=== PATIENT | female | born 1970 | race Caucasian/White ===

== ENCOUNTER 2020-08-08 15:46 | Inpatient (IN) ==
[2020-08-08] MEDS ORDERED: Naloxone 0.4 MG/ML INJ IVP PRN (17:34)
[2020-08-08] MEDS ORDERED: 0.9 % Sodium Chloride 1,000 ML IVC ONE (17:46)
[2020-08-08] MEDS ORDERED: 0.9 % Sodium Chloride 1,000 ML ONE (17:48)
[2020-08-08] MEDS ORDERED: Chloraseptic Spray 177 ML BOTTLE MM PRN (18:05)
[2020-08-08] MEDS ORDERED: Melatonin 3 MG TABLET PO PRN (18:11)
[2020-08-08] MEDS ORDERED: Ondansetron 4 MG/2 ML VIAL IVP PRN (18:54)
[2020-08-08 19:09] LABS: Adenovirus Not Detected (Not Detect); Bordetella Pertussis Not Detected (Not Detect); Chlamydophila pneumoniae Not Detected (Not Detect); Coronavirus 229E Not Detected (Not Detect); Coronavirus HKU1 Not Detected (Not Detect); Coronavirus NL63 Not Detected (Not Detect); Coronavirus OC43 Not Detected (Not Detect); Human Metapneumovirus Not Detected (Not Detect); Human Rhinovirus/Enterovirus DETECTED (Not Detect); Influenza A Subtype 2009 H1 Not Detected (Not Detect); Influenza B Not Detected (Not Detect); Mycoplasma pneumoniae Not Detected (Not Detect); Parainfluenza Virus 1 Not Detected (Not Detect); Parainfluenza Virus 2 Not Detected (Not Detect); Parainfluenza Virus 3 Not Detected (Not Detect); Parainfluenza Virus 4 Not Detected (Not Detect); Respiratory Syncytial Virus Not Detected (Not Detect); SARS-CoV-2 Not Detected (Not Detect)
[2020-08-08] MEDS: Cefepime HCl 2,000 MG in 0.9 % Sodium Chloride Mini Bag 100 ML IVPB SCH (19:56)
[2020-08-08] MEDS: Pantoprazole 40 MG VIAL IVP SCH (19:56)
[2020-08-08] MEDS: Ringers Solution, Lactated 1,000 ML IVC SCH (19:58)
[2020-08-08] MEDS: Vancomycin 1,250 MG/262.5 ML IV.SOLN IVPB SCH ×3 (19:58→20:13)
[2020-08-08] MEDS ORDERED: Lidocaine Viscous Oral Soln 15 ML SOLUTION MM PRN (20:54)
[2020-08-08] MEDS: Hydrocortisone Rectal 2.5% CRM 28 GM TUBE RC PRN (22:38)
[2020-08-08 23:29] LABS: Bilirubin,Urine Negative (Negative); Blood,Urine Negative (Negative); Clarity,Urine Clear (Clear); Color,Urine Light-Yellow (Yellow); Glucose,Urine (UA) Normal (Normal); Ketones,Urine Negative (Negative); Leukocyte Esterase,Urine Negative (Negative); Nitrite,Urine Negative (Negative); PH,Urine 5.5 pH Units (5.0-8.0); Protein,Urine Trace mg/dL (Neg-Trace); Specific Gravity,Urine 1.013 (1.010-1.025); Urobilinogen,Urine Normal (Normal)
[2020-08-09] MEDS: Cefepime HCl 2,000 MG in 0.9 % Sodium Chloride Mini Bag 100 ML IVPB SCH ×4 (00:20→23:03)
[2020-08-09 01:07] LABS: Hematocrit 34.9 % (35.3-44.9); Hemoglobin 10.9 g/dL (11.5-15.4); Immature Platelets 4.1 % (1.1-6.1); Lymphocytes # 0.2 K/mcL (0.6-4.6); Lymphocytes % 61.3 %; Mean Corpuscular HGB Conc 31.2 g/dL (31.6-35.5); Mean Corpuscular Hemoglobin 27.3 pg (28.0-33.3); Mean Corpuscular Volume 87.5 fL (83.0-100.0); Mean Platelet Volume 10.3 fL (9.4-12.4); Monocytes # 0.1 K/mcL (0.0-1.3); Monocytes % 16.1 %; Neutrophils # 0.1 K/mcL (1.6-8.9); Red Blood Count 3.99 M/mcL (3.82-4.97); Red Cell Distribution Width 13.4 % (11.5-14.5); Segmented Neutrophils % 22.6 %
[2020-08-09 01:11] LABS: Platelet Count 31 K/mcL (140-400)
[2020-08-09 01:15] LABS: White Blood Count 0.3 K/mcL (4.3-11.1)
[2020-08-09 01:21] LABS: BUN/Creatinine Ratio 23 (6-26); Blood Urea Nitrogen 27 mg/dL (6-20); Carbon Dioxide 18 mEq/L (23-29); Chloride 101 mEq/L (98-107); Glucose 108 mg/dL (70-105); Osmolality,Calculated 276 (280-300); Potassium 4.7 mEq/L (3.5-5.1); Sodium 130 mEq/L (136-145); eGFR For African Americans > 60 (> 60); eGFR For Non-African Americans 50 (> 60)
[2020-08-09 01:37] LABS: Platelet Estimate Decreased (Normal); Reactive Lymphocytes Present (Not Present)
[2020-08-09] MEDS ORDERED: Ringers Solution, Lactated 1,000 ML IVC ONE (03:01)
[2020-08-09] MEDS ORDERED: Furosemide 20 MG/2 ML VIAL IVP ONE (07:49)
[2020-08-09] MEDS: BuPROPion XL (24 HR) 150 MG TABLET PO SCH (08:17)
[2020-08-09] MEDS: Pantoprazole 40 MG VIAL IVP SCH (08:17)
[2020-08-09 08:35] LABS: ABG Base Excess -5 mEq/L (-2 to 3); ABG HCO3 18 mEq/L (21-27); ABG Oxygen Saturation 96 % (95-98); ABG PCO2 28 mmHg (35-45); ABG PH 7.42 pH Units (7.32-7.45); ABG PO2 78 mmHg (85-104); ABG TCO2 19 mEq/L (20-26)
[2020-08-09] MEDS: Acetaminophen 325 MG TABLET PO PRN (11:27)
[2020-08-09] MEDS ORDERED: Hydrocortisone Sodium Succ 100 MG/2 ML VIAL IVP SCH (13:57)
[2020-08-09] MEDS ORDERED: Azithromycin 500 MG in 0.9 % Sodium Chloride 250 ML IVPB SCH (15:00)
[2020-08-09] MEDS: Hydrocortisone Sodium Succ 100 MG/2 ML VIAL IVP SCH ×2 (18:31→23:01)
[2020-08-09] MEDS: Ringers Solution, Lactated 1,000 ML IVC SCH ×3 (19:25→19:27)
[2020-08-09] MEDS: Vancomycin 1,250 MG/262.5 ML IV.SOLN IVPB SCH (20:57)
[2020-08-09 21:50] LABS: C.difficile Toxin A/B Gene PCR Not detected (Not detect); Campylobacter by PCR Not detected (Not detect); Plesiomonas shigelloides PCR Not detected (Not detect)
[2020-08-09 21:51] LABS: Adenovirus F 40/41 PCR Not detected (Not detect); Astrovirus PCR Not detected (Not detect); Cryptosporidium by PCR Not detected (Not detect); Cyclospora cayetanensis PCR Not detected (Not detect); E. coli O157 by PCR Not detected (Not detect); Entamoeba histolytica PCR Not detected (Not detect); Enteroaggregative E.coli(EAEC) Not detected (Not detect); Enteropathogenic E.coli(EPEC) Not detected (Not detect); Enterotoxigenic E.coli (ETEC) Not detected (Not detect); Giardia lamblia PCR Not detected (Not detect); Norovirus GI/GII PCR Not detected (Not detect); Rotavirus A PCR Not detected (Not detect); Salmonella PCR Not detected (Not detect); Sapovirus PCR Not detected (Not detect); Shig/EnteroinvasiveE coli EIEC Not detected (Not detect); Shigalike tox-prod E coli STEC Not detected (Not detect); Vibrio PCR Not detected (Not detect); Vibrio cholerae PCR Not detected (Not detect); Yersinia enterocolitica PCR Not detected (Not detect)
[2020-08-10] MEDS: Ringers Solution, Lactated 1,000 ML IVC SCH ×2 (02:38→09:28)
[2020-08-10 03:28] LABS: Basophils % 1.2 %; Immature Granulocytes % 1.2 % (0-4); Red Blood Count 3.34 M/mcL (3.82-4.97)
[2020-08-10 03:30] LABS: Hematocrit 28.3 % (35.3-44.9); Hemoglobin 9.3 g/dL (11.5-15.4); Immature Platelets 4.9 % (1.1-6.1); Lymphocytes # 0.1 K/mcL (0.6-4.6); Lymphocytes % 16.7 %; Mean Corpuscular HGB Conc 32.9 g/dL (31.6-35.5); Mean Corpuscular Hemoglobin 27.8 pg (28.0-33.3); Mean Corpuscular Volume 84.7 fL (83.0-100.0); Mean Platelet Volume 9.8 fL (9.4-12.4); Monocytes # 0.1 K/mcL (0.0-1.3); Monocytes % 13.1 %; Red Cell Distribution Width 13.2 % (11.5-14.5); Segmented Neutrophils % 67.8 %
[2020-08-10 03:44] LABS: INR 2.2; Prothrombin Time 24.9 Seconds (9.4-12.1)
[2020-08-10 03:46] LABS: BUN/Creatinine Ratio 32 (6-26); Blood Urea Nitrogen 21 mg/dL (6-20); Calcium 7.4 mg/dL (8.6-10.3); Carbon Dioxide 20 mEq/L (23-29); Chloride 101 mEq/L (98-107); Glucose 119 mg/dL (70-105); Osmolality,Calculated 276 (280-300); Potassium 3.4 mEq/L (3.5-5.1); Sodium 131 mEq/L (136-145); eGFR For African Americans > 60 (> 60); eGFR For Non-African Americans > 60 (> 60)
[2020-08-10 04:10] LABS: Neutrophils # 0.5 K/mcL (1.6-8.9)
[2020-08-10 04:12] LABS: Platelet Count 30 K/mcL (140-400); White Blood Count 0.8 K/mcL (4.3-11.1)
[2020-08-10 04:44] LABS: Platelet Estimate Marked Decrease (Normal)
[2020-08-10] MEDS: Hydrocortisone Sodium Succ 100 MG/2 ML VIAL IVP SCH ×3 (05:10→18:34)
[2020-08-10] MEDS: Pantoprazole 40 MG VIAL IVP SCH (08:06)
[2020-08-10] MEDS: BuPROPion XL (24 HR) 150 MG TABLET PO SCH (08:06)
[2020-08-10] MEDS: Cefepime HCl 2,000 MG in 0.9 % Sodium Chloride Mini Bag 100 ML IVPB SCH ×2 (08:07→15:18)
[2020-08-10] MEDS: Nystatin SUSP 5 ML UD.LIQ PO SCH ×4 (08:30→20:42)
[2020-08-10] MEDS: Hydrocortisone Rectal 2.5% CRM 28 GM TUBE RC PRN (09:29)
[2020-08-10] MEDS: Acetaminophen 325 MG TABLET PO PRN (10:42)
[2020-08-10] MEDS ORDERED: Hydrocortisone Rectal 2.5% CRM 28 GM TUBE RC PRN (13:57)
[2020-08-10] MEDS ORDERED: Naloxone 0.4 MG/ML INJ IVP PRN (13:57)
[2020-08-10] MEDS ORDERED: Melatonin 3 MG TABLET PO PRN (13:57)
[2020-08-10] MEDS ORDERED: Ringers Solution, Lactated 1,000 ML IVC SCH (13:57)
[2020-08-10] MEDS ORDERED: Azithromycin 500 MG in 0.9 % Sodium Chloride 250 ML IVPB SCH (15:00)
[2020-08-10] MEDS ORDERED: Vancomycin 1,250 MG/262.5 ML IV.SOLN IVPB SCH (20:00)
[2020-08-10] MEDS: Vancomycin 1,500 MG/265 ML IV.SOLN IVPB SCH (20:42)
[2020-08-11] MEDS: Cefepime HCl 2,000 MG in 0.9 % Sodium Chloride Mini Bag 100 ML IVPB SCH ×3 (00:04→16:52)
[2020-08-11] MEDS: Hydrocortisone Sodium Succ 100 MG/2 ML VIAL IVP SCH ×4 (00:04→21:11)
[2020-08-11] MEDS: Acetaminophen 325 MG TABLET PO PRN (05:22)
[2020-08-11 06:44] LABS: Basophils % 0.9 %; Hematocrit 27.8 % (35.3-44.9); Immature Granulocytes % 1.8 % (0-4); Immature Platelets 12.6 % (1.1-6.1); Lymphocytes # 0.3 K/mcL (0.6-4.6); Mean Corpuscular HGB Conc 32.4 g/dL (31.6-35.5); Mean Corpuscular Hemoglobin 27.6 pg (28.0-33.3); Mean Corpuscular Volume 85.3 fL (83.0-100.0); Mean Platelet Volume 11.5 fL (9.4-12.4); Monocytes # 0.4 K/mcL (0.0-1.3); Neutrophils # 3.5 K/mcL (1.6-8.9); Nucleated Red Blood Cells 0.5 /100 WBC (0); Red Blood Count 3.26 M/mcL (3.82-4.97); Red Cell Distribution Width 13.4 % (11.5-14.5); Segmented Neutrophils % 80.3 %; White Blood Count 4.4 K/mcL (4.3-11.1)
[2020-08-11 06:47] LABS: Platelet Count 39 K/mcL (140-400)
[2020-08-11 06:57] LABS: BUN/Creatinine Ratio 30 (6-26); Blood Urea Nitrogen 18 mg/dL (6-20); Calcium 7.9 mg/dL (8.6-10.3); Carbon Dioxide 24 mEq/L (23-29); Chloride 103 mEq/L (98-107); Glucose 131 mg/dL (70-105); Osmolality,Calculated 280 (280-300); Potassium 3.8 mEq/L (3.5-5.1); Sodium 133 mEq/L (136-145); eGFR For African Americans > 60 (> 60); eGFR For Non-African Americans > 60 (> 60)
[2020-08-11 07:17] LABS: Platelet Estimate Marked Decrease (Normal)
[2020-08-11] MEDS: Pantoprazole 40 MG VIAL IVP SCH (08:05)
[2020-08-11] MEDS: Nystatin SUSP 5 ML UD.LIQ PO SCH ×4 (08:05→21:11)
[2020-08-11] MEDS: BuPROPion XL (24 HR) 150 MG TABLET PO SCH (08:06)
[2020-08-11] MEDS: Vancomycin 1,500 MG/265 ML IV.SOLN IVPB SCH ×2 (09:39→21:12)
[2020-08-12] MEDS: Acetaminophen 325 MG TABLET PO PRN (00:24)
[2020-08-12] MEDS: Cefepime HCl 2,000 MG in 0.9 % Sodium Chloride Mini Bag 100 ML IVPB SCH ×4 (00:25→23:12)
[2020-08-12] MEDS: Hydrocortisone Sodium Succ 100 MG/2 ML VIAL IVP SCH ×3 (05:30→23:13)
[2020-08-12 05:53] LABS: Hemoglobin 8.4 g/dL (11.5-15.4)
[2020-08-12 05:55] LABS: Hematocrit 25.3 % (35.3-44.9); Immature Platelets 9.2 % (1.1-6.1); Mean Corpuscular HGB Conc 33.2 g/dL (31.6-35.5); Mean Corpuscular Hemoglobin 28.1 pg (28.0-33.3); Mean Corpuscular Volume 84.6 fL (83.0-100.0); Mean Platelet Volume 11.2 fL (9.4-12.4); Nucleated Red Blood Cells 0.4 /100 WBC (0); Red Blood Count 2.99 M/mcL (3.82-4.97); Red Cell Distribution Width 13.8 % (11.5-14.5)
[2020-08-12] MEDS: Lidocaine Viscous Oral Soln 15 ML SOLUTION MM PRN (06:02)
[2020-08-12 06:14] LABS: BUN/Creatinine Ratio 29 (6-26); Blood Urea Nitrogen 17 mg/dL (6-20); Calcium 7.8 mg/dL (8.6-10.3); Carbon Dioxide 25 mEq/L (23-29); Chloride 104 mEq/L (98-107); Glucose 105 mg/dL (70-105); Osmolality,Calculated 284 (280-300); Platelet Count 67 K/mcL (140-400); Potassium 3.7 mEq/L (3.5-5.1); Sodium 136 mEq/L (136-145); eGFR For African Americans > 60 (> 60); eGFR For Non-African Americans > 60 (> 60)
[2020-08-12 06:43] LABS: Lymphocytes # 2.8 K/mcL (0.6-4.6); Monocytes # 1.7 K/mcL (0.0-1.3); Neutrophils # 9.2 K/mcL (1.6-8.9); Platelet Estimate Decreased (Normal)
[2020-08-12 06:44] LABS: Polychromasia 1+ (Not Present)
[2020-08-12] MEDS: BuPROPion XL (24 HR) 150 MG TABLET PO SCH (09:03)
[2020-08-12] MEDS: Nystatin SUSP 5 ML UD.LIQ PO SCH ×4 (09:03→21:31)
[2020-08-12] MEDS: Pantoprazole 40 MG VIAL IVP SCH (09:05)
[2020-08-12] MEDS: Vancomycin 1,500 MG/265 ML IV.SOLN IVPB SCH (10:13)
[2020-08-12 15:21] LABS: A.galactomannan Ag Index 0.08
[2020-08-12] MEDS ORDERED: Fluconazole 150 MG TABLET PO ONE (15:32)
[2020-08-12] MEDS: Glycerin RECTAL Suppository RC SCH (16:02)
[2020-08-12] MEDS: Magic Mouthwash 10 ML UD Cup PO SCH (16:06)
[2020-08-12] MEDS: Melatonin 3 MG TABLET PO SCH (21:31)
[2020-08-12] MEDS: Hydrocortisone Acetate 25 MG RECTAL SUPPOSITORY RC SCH (21:32)
[2020-08-13] MEDS: Benzonatate 100 MG CAPSULE PO PRN ×3 (00:40→21:34)
[2020-08-13] MEDS: Chloraseptic Spray 177 ML BOTTLE MM PRN (04:42)
[2020-08-13 05:45] LABS: Hematocrit 26.9 % (35.3-44.9); Hemoglobin 8.6 g/dL (11.5-15.4); Mean Corpuscular Hemoglobin 27.7 pg (28.0-33.3); Mean Corpuscular Volume 86.5 fL (83.0-100.0); Mean Platelet Volume 11.7 fL (9.4-12.4); Platelet Count 91 K/mcL (140-400); Red Blood Count 3.11 M/mcL (3.82-4.97); Red Cell Distribution Width 14.4 % (11.5-14.5); White Blood Count 25.4 K/mcL (4.3-11.1)
[2020-08-13] MEDS: Nystatin SUSP 5 ML UD.LIQ PO SCH ×4 (09:02→21:10)
[2020-08-13] MEDS: Hydrocortisone Sodium Succ 100 MG/2 ML VIAL IVP SCH ×2 (09:03→21:10)
[2020-08-13] MEDS: Cefepime HCl 2,000 MG in 0.9 % Sodium Chloride Mini Bag 100 ML IVPB SCH ×2 (09:04→16:14)
[2020-08-13] MEDS: Magic Mouthwash 10 ML UD Cup PO SCH ×3 (09:08→16:13)
[2020-08-13] MEDS: BuPROPion XL (24 HR) 150 MG TABLET PO SCH (09:09)
[2020-08-13] MEDS: Hydrocortisone Acetate 25 MG RECTAL SUPPOSITORY RC SCH ×2 (09:12→21:09)
[2020-08-13] MEDS: Glycerin RECTAL Suppository RC SCH (09:13)
[2020-08-13] MEDS ORDERED: Isovue-370 500 ML BOTTLE IVP ONE (13:19)
[2020-08-13] MEDS ORDERED: Temazepam 15 MG CAPSULE PO PRN (16:19)
[2020-08-13] MEDS: Melatonin 3 MG TABLET PO SCH (21:09)
[2020-08-13] MEDS ORDERED: *HR* Enoxaparin 100 MG/ML SYRINGE SQ SCH (23:00)
[2020-08-14] MEDS: Cefepime HCl 2,000 MG in 0.9 % Sodium Chloride Mini Bag 100 ML IVPB SCH ×3 (00:12→17:06)
[2020-08-14] MEDS: Ondansetron 4 MG/2 ML VIAL IVP PRN ×2 (00:21→17:06)
[2020-08-14] MEDS: Lidocaine Viscous Oral Soln 15 ML SOLUTION MM PRN (00:40)
[2020-08-14] MEDS: Chloraseptic Spray 177 ML BOTTLE MM PRN (02:56)
[2020-08-14 05:45] LABS: Hematocrit 24.9 % (35.3-44.9); Hemoglobin 8.2 g/dL (11.5-15.4); Mean Corpuscular HGB Conc 32.9 g/dL (31.6-35.5); Mean Corpuscular Hemoglobin 28.5 pg (28.0-33.3); Mean Corpuscular Volume 86.5 fL (83.0-100.0); Platelet Count 128 K/mcL (140-400); Red Blood Count 2.88 M/mcL (3.82-4.97); Red Cell Distribution Width 14.5 % (11.5-14.5); White Blood Count 24.4 K/mcL (4.3-11.1)
[2020-08-14 06:06] LABS: BUN/Creatinine Ratio 26 (6-26); Blood Urea Nitrogen 14 mg/dL (6-20); Calcium 7.8 mg/dL (8.6-10.3); Carbon Dioxide 29 mEq/L (23-29); Chloride 102 mEq/L (98-107); Glucose 124 mg/dL (70-105); Osmolality,Calculated 286 (280-300); Potassium 3.4 mEq/L (3.5-5.1); Sodium 137 mEq/L (136-145); eGFR For African Americans > 60 (> 60); eGFR For Non-African Americans > 60 (> 60)
[2020-08-14] MEDS: Benzonatate 100 MG CAPSULE PO PRN (06:12)
[2020-08-14] MEDS: Nystatin SUSP 5 ML UD.LIQ PO SCH ×4 (07:50→23:03)
[2020-08-14] MEDS: BuPROPion XL (24 HR) 150 MG TABLET PO SCH (07:50)
[2020-08-14] MEDS: Hydrocortisone Sodium Succ 100 MG/2 ML VIAL IVP SCH (07:51)
[2020-08-14] MEDS: Hydrocortisone Acetate 25 MG RECTAL SUPPOSITORY RC SCH ×2 (07:52→23:01)
[2020-08-14] MEDS: Glycerin RECTAL Suppository RC SCH (07:52)
[2020-08-14] MEDS: Magic Mouthwash 10 ML UD Cup PO SCH ×3 (07:52→19:34)
[2020-08-14] MEDS ORDERED: *HR* Rivaroxaban 15 MG TABLET PO SCH (10:15)
[2020-08-14] MEDS: AMPHOTERICIN B LIPID COMPLEX IVPB SCH (19:32)
[2020-08-14] MEDS: D5 IVPB SCH (19:32)
[2020-08-14] MEDS: D5% in Water 50 ML IVPB SCH ×2 (19:32→23:10)
[2020-08-14] MEDS: WATER IVPB SCH (19:32)
[2020-08-14] MEDS ORDERED: Oxymetazoline Nasal SPRAY BOTTLE NS ONE (20:12)
[2020-08-14] MEDS ORDERED: Lidocaine/EPI 1:200k 1% PF 10 ML VIAL ONE (20:12)
[2020-08-14] MEDS ORDERED: *HR* FentaNYL (PF) 100 MCG/2 ML VIAL ONE (20:30)
[2020-08-14] MEDS ORDERED: *HR* Midazolam HCl 2 MG/2 ML VIAL ONE (20:30)
[2020-08-14] MEDS ORDERED: *HR* Propofol 200 MG/20 ML VIAL IVP ONE (20:31)
[2020-08-14] MEDS ORDERED: Ondansetron 4 MG/2 ML VIAL ONE (20:32)
[2020-08-14] MEDS ORDERED: Lidocaine -MPF 2% 2 ML VIAL ONE (20:32)
[2020-08-14] MEDS ORDERED: *HR* EPINEPHrine 30 MG/30 ML MDV ONE (20:46)
[2020-08-14] MEDS ORDERED: Famotidine 20 MG/2 ML VIAL ONE (20:49)
[2020-08-14] MEDS ORDERED: Acetaminophen IV 1,000 MG/100 ML BAG IVPB ONE (20:49)
[2020-08-14] MEDS ORDERED: *HR* Enoxaparin 100 MG/ML SYRINGE SQ ONE (21:00)
[2020-08-14] MEDS ORDERED: Lidocaine -MPF 4% 5 ML AMPUL ONE (21:06)
[2020-08-14] MEDS ORDERED: *HR* Labetalol 20 MG/4 ML SYRINGE IVP PRN (21:54)
[2020-08-14] MEDS ORDERED: *HR* OxyCODONE Immed Rel 5 MG TABLET PO PRN (21:54)
[2020-08-14] MEDS ORDERED: Scopolamine Patch 1.5 MG PATCH.TD72 TD ONE (21:54)
[2020-08-14] MEDS ORDERED: *HR* HYDROmorphone 2 MG TABLET PO PRN (21:54)
[2020-08-14] MEDS ORDERED: Pregabalin 75 MG CAPSULE PO ONE (21:54)
[2020-08-14] MEDS ORDERED: Sugammadex Sodium 200 MG/2 ML VIAL IV ONE (22:51)
[2020-08-14] MEDS ORDERED: Ipratropium/Albuterol Neb 3 ML ONE (22:56)
[2020-08-14] MEDS: Melatonin 3 MG TABLET PO SCH (23:02)
[2020-08-14] MEDS: *HR* HYDROmorphone (PF) 1 MG/ML SYRINGE IVP PRN ×3 (23:11→23:26)
[2020-08-15] MEDS: Cefepime HCl 2,000 MG in 0.9 % Sodium Chloride Mini Bag 100 ML IVPB SCH ×3 (00:38→16:16)
[2020-08-15 03:07] LABS: Hematocrit 27.9 % (35.3-44.9); Mean Corpuscular HGB Conc 32.3 g/dL (31.6-35.5); Mean Corpuscular Hemoglobin 28.5 pg (28.0-33.3); Mean Corpuscular Volume 88.3 fL (83.0-100.0); Mean Platelet Volume 10.6 fL (9.4-12.4); Platelet Count 179 K/mcL (140-400); Red Blood Count 3.16 M/mcL (3.82-4.97); Red Cell Distribution Width 14.7 % (11.5-14.5); White Blood Count 17.3 K/mcL (4.3-11.1)
[2020-08-15 03:29] LABS: BUN/Creatinine Ratio 19 (6-26); Blood Urea Nitrogen 11 mg/dL (6-20); Carbon Dioxide 28 mEq/L (23-29); Chloride 103 mEq/L (98-107); Glucose 148 mg/dL (70-105); Magnesium 1.5 mg/dL (1.6-2.6); Osmolality,Calculated 288 (280-300); Potassium 3.9 mEq/L (3.5-5.1); Sodium 138 mEq/L (136-145); eGFR For African Americans > 60 (> 60); eGFR For Non-African Americans > 60 (> 60)
[2020-08-15 03:46] LABS: Troponin I 0.09 ng/mL (< 0.04)
[2020-08-15] MEDS: WATER IVPB SCH (08:31)
[2020-08-15] MEDS: D5 IVPB SCH (08:31)
[2020-08-15] MEDS: AMPHOTERICIN B LIPID COMPLEX IVPB SCH (08:31)
[2020-08-15] MEDS: D5% in Water 50 ML IVPB SCH ×2 (08:31→11:20)
[2020-08-15] MEDS: BuPROPion XL (24 HR) 150 MG TABLET PO SCH (08:34)
[2020-08-15] MEDS: Nystatin SUSP 5 ML UD.LIQ PO SCH ×4 (08:34→20:26)
[2020-08-15] MEDS: levoFLOXacin 750 MG TABLET PO SCH (08:34)
[2020-08-15] MEDS: Magic Mouthwash 10 ML UD Cup PO SCH ×3 (08:34→16:16)
[2020-08-15] MEDS: Hydrocortisone Acetate 25 MG RECTAL SUPPOSITORY RC SCH ×2 (08:35→21:47)
[2020-08-15] MEDS: Glycerin RECTAL Suppository RC SCH (08:35)
[2020-08-15] MEDS ORDERED: Lidocaine -MPF 2% 5 ML VIAL ONE (09:44)
[2020-08-15] MEDS ORDERED: Ondansetron 4 MG/2 ML VIAL ONE (09:44)
[2020-08-15] MEDS ORDERED: *HR* Propofol 200 MG/20 ML VIAL IVP ONE (09:44)
[2020-08-15] MEDS ORDERED: *HR* FentaNYL (PF) 100 MCG/2 ML VIAL ONE ×2 (09:44→13:00)
[2020-08-15] MEDS ORDERED: *HR* Succinylcholine 200 MG/10 ML VIAL IVP ONE (09:47)
[2020-08-15] MEDS ORDERED: Lidocaine -MPF 4% 5 ML AMPUL ONE (09:51)
[2020-08-15] MEDS: Ondansetron 4 MG/2 ML VIAL IVP PRN (11:34)
[2020-08-15] MEDS ORDERED: Ondansetron 4 MG/2 ML VIAL IVP ONE (13:50)
[2020-08-15] MEDS: *HR* Enoxaparin 100 MG/ML SYRINGE SQ SCH (14:29)
[2020-08-15 15:52] LABS: Alanine Aminotransferase 68 Units/L (7-52); Albumin 2.9 g/dL (3.5-5.7); Albumin/Globulin Ratio 1.2 (1.1-2.2); Alkaline Phosphatase 151 Units/L (34-104); Aspartate Amino Transferase 58 Units/L (13-39); Bilirubin,Direct 0.1 mg/dL (0.0-0.2); Bilirubin,Indirect 0.4 mg/dL (0.0-1.0); Bilirubin,Total 0.5 mg/dL (0.3-1.0); Globulin 2.4 g/dL (2.4-3.5); Total Protein 5.3 g/dL (6.4-8.9)
[2020-08-15] MEDS: Melatonin 3 MG TABLET PO SCH (21:55)
[2020-08-16] MEDS: Cefepime HCl 2,000 MG in 0.9 % Sodium Chloride Mini Bag 100 ML IVPB SCH ×2 (00:03→08:31)
[2020-08-16] MEDS: *HR* Enoxaparin 100 MG/ML SYRINGE SQ SCH (00:08)
[2020-08-16 05:02] LABS: Hematocrit 25.8 % (35.3-44.9); Hemoglobin 7.9 g/dL (11.5-15.4); Mean Corpuscular HGB Conc 30.6 g/dL (31.6-35.5); Mean Corpuscular Hemoglobin 27.1 pg (28.0-33.3); Mean Corpuscular Volume 88.7 fL (83.0-100.0); Mean Platelet Volume 10.1 fL (9.4-12.4); Platelet Count 202 K/mcL (140-400); Red Blood Count 2.91 M/mcL (3.82-4.97); Red Cell Distribution Width 14.9 % (11.5-14.5); White Blood Count 14.8 K/mcL (4.3-11.1)
[2020-08-16 05:22] LABS: Alanine Aminotransferase 47 Units/L (7-52); Albumin 2.7 g/dL (3.5-5.7); Albumin/Globulin Ratio 1.2 (1.1-2.2); Alkaline Phosphatase 111 Units/L (34-104); Aspartate Amino Transferase 25 Units/L (13-39); BUN/Creatinine Ratio 15 (6-26); Bilirubin,Direct 0.1 mg/dL (0.0-0.2); Bilirubin,Indirect 0.3 mg/dL (0.0-1.0); Bilirubin,Total 0.4 mg/dL (0.3-1.0); Blood Urea Nitrogen 10 mg/dL (6-20); Carbon Dioxide 32 mEq/L (23-29); Chloride 101 mEq/L (98-107); Globulin 2.2 g/dL (2.4-3.5); Glucose 101 mg/dL (70-105); Magnesium 1.9 mg/dL (1.6-2.6); Osmolality,Calculated 281 (280-300); Phosphorous 3.6 mg/dL (2.7-4.5); Potassium 3.2 mEq/L (3.5-5.1); Sodium 136 mEq/L (136-145); Total Protein 4.9 g/dL (6.4-8.9); eGFR For African Americans > 60 (> 60); eGFR For Non-African Americans > 60 (> 60)
[2020-08-16] MEDS: Magic Mouthwash 10 ML UD Cup PO SCH (08:32)
[2020-08-16] MEDS: Nystatin SUSP 5 ML UD.LIQ PO SCH (08:36)
[2020-08-16] MEDS: Hydrocortisone Acetate 25 MG RECTAL SUPPOSITORY RC SCH (08:37)
[2020-08-16] MEDS: levoFLOXacin 750 MG TABLET PO SCH (08:37)
[2020-08-16] MEDS: Glycerin RECTAL Suppository RC SCH (08:37)
[2020-08-16] MEDS: BuPROPion XL (24 HR) 150 MG TABLET PO SCH (08:37)
[2020-08-16] MEDS: D5% in Water 50 ML IVPB SCH (09:26)
[2020-08-16] MEDS: AMPHOTERICIN B LIPID COMPLEX IVPB SCH (09:27)
[2020-08-16] MEDS: D5 IVPB SCH (09:27)
[2020-08-16] MEDS: WATER IVPB SCH (09:27)
[2020-08-16] MEDS: Ondansetron 4 MG/2 ML VIAL IVP PRN ×2 (09:28→12:06)
[2020-08-16 11:26] VITALS: BP 160/82
[2020-08-16] MEDS ORDERED: D5% in Water 50 ML IVPB SCH (12:00)
[2020-08-18 14:22] LABS: A.galactomannan Ag Index 0.03
== END 2020-08-16 12:32 | disposition short-term general hospital (02) | DRG 853 ==
LOC: 2NNU → SUATTDRO 17:16 → ICNU 08-09 16:12 → 3ANU 08-10 16:22
PROVIDERS: ADMIT Internal Medicine; ATTEND Internal Medicine